=== PATIENT | male | born 1990 | race Caucasian/White ===

== ENCOUNTER 2016-12-19 22:40 | Emergency (ER) | payer OTHER ==
[~2016-12-19] VITALS: Ht 172.7 cm; Wt 84.1 kg
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
[2016-12-19 22:46] VITALS: BP 134/78; PULSE 116; RESP 16; O2SAT 98
[2016-12-19 23:29] VITALS: BP 137/82; PULSE 111; RESP 18; O2SAT 98
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
== END 2016-12-19 23:30 ==
LOC: EDBD 22:40 → SED 22:40 → EDUNIT# 22:40 → SED 23:30
DX: S60.819A Abrasion of unspecified wrist, initial encounter (principal); S00.81XA Abrasion of other part of head, initial encounter; S39.012A Strain of muscle, fascia and tendon of lower back, initial encounter; T75.4XXA Electrocution, initial encounter; Y35.893A Legal intervention involving other specified means, suspect injured, initial encounter; Y92.9 Unspecified place or not applicable; Y93.89 Activity, other specified; Y99.8 Other external cause status; R00.0 Tachycardia, unspecified; F15.120 Other stimulant abuse with intoxication, uncomplicated; Z87.898 Personal history of other specified conditions